=== PATIENT | female | born 1975 | race Two or more races ===

== ENCOUNTER 2016-08-19 20:09 | Emergency (ER) | payer OTHER ==
[~2016-08-19] VITALS: Ht 149.9 cm; Wt 65.0 kg
[2016-08-19] MEDS ORDERED: KETOROLAC TROMETHAMINE 30 MG/ML VIAL IVP ONE (21:00)
[2016-08-19 21:04] LABS: BASOPHILS # (AUTO) 0.01 K/uL (0.00-0.20); BASOPHILS % (AUTO) 0.2 % (0.0-2.0); EOSINOPHILS # (AUTO) 0.09 K/uL (0.00-0.70); EOSINOPHILS % (AUTO) 1.19 % (1.0-6.0); HEMATOCRIT 40.6 % (36-46); HEMOGLOBIN 13.1 g/dL (12.0-16.0); LYMPHOCYTES # (AUTO) 1.8 K/uL (1.0-4.8); MEAN CORPUSCULAR HEMOGLOBIN 28.5 pg (26.0-34.0); MEAN CORPUSCULAR HGB CONC 32.2 G/dL (31.0-37.0); MEAN CORPUSCULAR VOLUME 88 fL (80-100); MONOCYTES # (AUTO) 0.7 K/uL (0.1-1.0); NEUTROPHILS % (AUTO) 65.7 % (40.0-70.0); PLATELET COUNT (AUTO) 262 K/uL (150-450); RED BLOOD CELL COUNT(AUTO) 4.59 MIL/uL (4.00-5.20); RED CELL DISTRIBUTION WIDTH 13.6 % (11.5-14.5); WHITE BLOOD COUNT (AUTO) 7.6 K/uL (4.5-11.0)
[2016-08-19 21:13] LABS: ANION GAP 5 mmol/L (8-16); CALCIUM, TOTAL 9.2 mg/dL (8.8-10.5); CARBON DIOXIDE 30 mmol/L (22-29); CHLORIDE 101 mmol/L (98-107); CREATININE 0.95 mg/dL (0.60-1.30); GLOMERULAR FILTR. RATE CALC > 60 mL/min (>60); POTASSIUM 4.4 mmol/L (3.5-5.1); SODIUM SERUM 136 mmol/L (136-145); UREA NITROGEN, BLOOD 11 mg/dL (7-18)
[2016-08-19 21:18] LABS: ALANINE AMINOTRANSFERASE 126 U/L (12-78); ALBUMIN 3.4 g/dL (3.4-5.0); ASPARTATE AMINOTRANSFERASE 82 U/L (15-37); BILIRUBIN,TOTAL 0.2 mg/dL (0.1-1.0); TOTAL PROTEIN, SERUM 7.5 g/dL (6.4-8.2)
[2016-08-19 21:28] LABS: APPEARANCE,URINE CLEAR (CLEAR); GLUCOSE, URINE (UA) NEGATIVE (NEGATIVE); KETONES,URINE NEGATIVE (NEGATIVE); OCCULT BLOOD,URINE NEGATIVE (NEGATIVE); PROTEIN,URINE NEGATIVE (NEGATIVE)
[2016-08-19 21:32] LABS: ADD UA MICROSCOPIC YES; LEUKOCYTE ESTERASE ,URINE SMALL (NEGATIVE)
[2016-08-19 21:33] LABS: RBC,URINE 0-2 /HPF (0-2); SQUAMOUS EPITHELIAL CELL,UR Moderate /LPF (None Seen)
[2016-08-19] MEDS ORDERED: TraMADol HCL 50 MG TABLET PO ONE (22:00)
[2016-08-19] MEDS ORDERED: CefTRIAXone 1 GM/DEXTROSE 50 ML IV ONE (22:00)
[2016-08-19 22:22] VITALS: BP 122/78
== END 2016-08-19 22:23 | disposition home or self-care (01) ==
LOC: EMS 20:10
DX: N39.0 Urinary tract infection, site not specified (principal); F17.210 Nicotine dependence, cigarettes, uncomplicated; Z91.018 Allergy to other foods
CPT/HCPCS: 36415; 80053; 81001; 83690; 84703; 85025; 87077; 87086; 87186; 96374; 96375; 99284; J0696; J1885

== ENCOUNTER 2018-02-09 22:37 | Emergency (ER) | payer OTHER ==
[~2018-02-09] VITALS: Ht 149.9 cm; Wt 65.9 kg
[2018-02-09] MEDS ORDERED: TOPI100T37 PO ×2 (22:45)
[2018-02-10 00:09] VITALS: BP 122/80
== END 2018-02-10 00:33 | disposition home or self-care (01) ==
LOC: EMS 22:38
DX: F10.20 Alcohol dependence, uncomplicated (principal); F17.210 Nicotine dependence, cigarettes, uncomplicated; F11.10 Opioid abuse, uncomplicated; Z90.11 Acquired absence of right breast and nipple; Z91.018 Allergy to other foods
CPT/HCPCS: 99406

== ENCOUNTER 2020-07-18 11:29 | Emergency (ER) | payer OTHER ==
[~2020-07-18] VITALS: Ht 149.9 cm; Wt 68.2 kg
[~2020-07-18 11:29] MED LIST: TOPI100T37 PO
[2020-07-18 11:33] VITALS: BP 146/95
[2020-07-18] MEDS ORDERED: PENICILLIN V POTASSIUM 500 MG TABLET PO ONE (12:30)
[2020-07-18] MEDS ORDERED: HYDROCODONE/ACETAMINOPHEN 5-325 MG TABLET PO ONE (12:30)
== END 2020-07-18 12:59 | disposition home or self-care (01) ==
LOC: EMS 11:32
DX: K04.7 Periapical abscess without sinus (principal); F17.210 Nicotine dependence, cigarettes, uncomplicated; F11.90 Opioid use, unspecified, uncomplicated; Z91.018 Allergy to other foods
CPT/HCPCS: 99283

== ENCOUNTER 2024-04-26 18:19 | Emergency (ER) | payer MEDICAID, OTHER ==
[~2024-04-26] VITALS: Ht 149.9 cm; Wt 77.3 kg
[2024-04-26 18:21] VITALS: BP 150/98; PULSE 89; RESP 18; TEMP 98.2; O2SAT 99
[2024-04-26] MEDS ORDERED: HYDR-4527 PO (18:23)
[2024-04-26] MEDS ORDERED: PALB125T PO (18:23)
[2024-04-26] MEDS ORDERED: HYDR-4062 PO (19:03)
[2024-04-26] MEDS ORDERED: IBUP-1554 PO (19:03)
[2024-04-26] MEDS ORDERED: AMOX-457 PO (19:03)
[2024-04-26] MEDS ORDERED: TOPI-258 PO (19:11)
[2024-04-26] MEDS ORDERED: QUET50TA24 PO (19:11)
[2024-04-26] MEDS ORDERED: SEMA1.7P SQ (19:11)
[2024-04-26] MEDS ORDERED: BUPR-562 PO (19:11)
[2024-04-26] MEDS ORDERED: PRAZ2 PO (19:11)
[2024-04-26] MEDS ORDERED: LETR2.5 PO (19:11)
[2024-04-26] MEDS ORDERED: MIRT-93 PO (19:11)
[2024-04-26] MEDS ORDERED: TOPI-97 PO (19:11)
[2024-04-26] MEDS: HYDROCODONE/ACETAMINOPHEN 5-325 MG TABLET PO ONE (19:18)
== END 2024-04-26 19:21 | disposition home or self-care (01) ==
LOC: EMS 18:19
DX: K04.7 Periapical abscess without sinus (principal); F17.210 Nicotine dependence, cigarettes, uncomplicated; Z88.0 Allergy status to penicillin; Z85.3 Personal history of malignant neoplasm of breast
CPT/HCPCS: 99283

== ENCOUNTER 2024-05-05 17:45 | Emergency (ER) | payer MEDICAID ==
[~2024-05-05] VITALS: Ht 149.9 cm; Wt 76.4 kg
[~2024-05-05 17:45] MED LIST changes: +AMOX-457 PO; +BUPR-562 PO; +HYDR-4062 PO; +HYDR-4527 PO; +IBUP-1554 PO; +LETR2.5 PO; +MIRT-93 PO; +PALB125T PO; +PRAZ2 PO; +QUET50TA24 PO; +SEMA1.7P SQ; +TOPI-258 PO; +TOPI-97 PO; -TOPI100T37 PO
[2024-05-05 17:56] VITALS: BP 143/94; PULSE 84; RESP 18; TEMP 98.5; O2SAT 99
[2024-05-05] MEDS ORDERED: SEMA2.4P SQ (17:59)
[2024-05-05] MEDS: ONDANSETRON HCL 4 MG/2 ML VIAL IVP ONE (18:30)
[2024-05-05] MEDS: SODIUM CHLORIDE 0.9% 1,000 ML IV ONE (18:30)
[2024-05-05 18:51] LABS: BASOPHILS % (AUTO) 0.4 % (0.0-2.0); EOSINOPHILS % (AUTO) 6.1 % (1.0-6.0); HEMATOCRIT 42.2 % (36-46); HEMOGLOBIN 13.9 g/dL (12.0-16.0); LYMPHOCYTES # (AUTO) 1.8 K/uL (1.0-4.8); LYMPHOCYTES % (AUTO) 44.3 % (22.0-44.0); MEAN CORPUSCULAR HEMOGLOBIN 30.3 pg (26.0-34.0); MEAN CORPUSCULAR HGB CONC 32.9 G/dL (31.0-37.0); MEAN CORPUSCULAR VOLUME 92 fL (80-100); MONOCYTES # (AUTO) 0.1 K/uL (0.1-1.0); MONOCYTES % (AUTO) 3.5 % (2.0-9.0); NEUTROPHILS # (AUTO) 1.8 K/uL (1.8-7.7); NEUTROPHILS % (AUTO) 45.7 % (40.0-70.0); PLATELET COUNT (AUTO) 189 K/uL (150-450); RED BLOOD CELL COUNT(AUTO) 4.59 MIL/uL (4.00-5.20); RED CELL DISTRIBUTION WIDTH 13.5 % (11.5-14.5)
[2024-05-05 19:03] LABS: ANION GAP 4 mmol/L (8-16); CALCIUM, TOTAL 9.5 mg/dL (8.8-10.5); CARBON DIOXIDE 32 mmol/L (22-29); CHLORIDE 103 mmol/L (98-107); CREATININE 0.85 mg/dL (0.60-1.30); GLOMERULAR FILTR. RATE CALC > 60 mL/min (>60); GLUCOSE,RANDOM 87 mg/dL (70-110); POTASSIUM 4.3 mmol/L (3.5-5.1); SODIUM SERUM 139 mmol/L (136-145); UREA NITROGEN, BLOOD 17 mg/dL (7-18)
[2024-05-05 19:12] LABS: TROPONIN I-HIGH SENSITIVITY Less Than 4 ng/L (<51)
[2024-05-05 19:22] LABS: ALBUMIN 3.7 g/dL (3.4-5.0); BILIRUBIN,DIRECT 0.1 mg/dL (0.00-0.20); BILIRUBIN,TOTAL 0.2 mg/dL (0.1-1.0); TOTAL PROTEIN, SERUM 7.9 g/dL (6.4-8.2)
[2024-05-05 20:22] LABS: ABG BASE EXCESS 3.2 mmol/L (-2.0-3.0); ABG CARBOXYHEMOGLOBIN 0.5 % (0.5-1.5); ABG HCO3 27.1 mmol/L (21.0-28.0); ABG METHEMOGLOBIN 0.6 % (0.0-1.5); ABG OXYGEN CONTENT 19.9 mL/dL (15.0-23.0); ABG OXYGEN SATURATION 98.7 % (94.0-98.0); ABG OXYHEMOGLOBIN 97.6 % (94.0-98.0); ABG PCO2 41 mmHg (32.0-45.0); ABG TOTAL HEMOGLOBIN 14.4 G/dL (12.0-16.0); PO2, ARTERIAL BG 103.3 mmHg (83.0-108.0); SOURCE, BLOOD GAS ARTERIAL; TEMPERATURE, FAHRENHEIT, BG 98.5 FAHREN (96.0-98.6)
[2024-05-05 20:23] LABS: ALLEN TEST, BLOOD GAS Positive; O2 DEVICE,BLOOD GAS ROOM AIR (ROOM AIR); SITE, BLOOD GAS LFT RADIAL
== END 2024-05-05 21:12 | disposition home or self-care (01) ==
LOC: EMS 17:45
DX: R10.84 Generalized abdominal pain (principal); T50.905A Adverse effect of unspecified drugs, medicaments and biological substances, initial encounter; F15.90 Other stimulant use, unspecified, uncomplicated; Z98.890 Other specified postprocedural states; Z79.811 Long term (current) use of aromatase inhibitors; Z79.899 Other long term (current) drug therapy; Z85.3 Personal history of malignant neoplasm of breast; Z88.0 Allergy status to penicillin; Y92.89 Other specified places as the place of occurrence of the external cause
CPT/HCPCS: 80048; 80076; 82805; 84484; 85025; 93005; 99284

== ENCOUNTER 2024-06-09 14:16 | Emergency (ER) | payer MEDICAID ==
[~2024-06-09] VITALS: Ht 149.9 cm; Wt 77.2 kg
[~2024-06-09 14:16] MED LIST changes: -AMOX-457 PO; -BUPR-562 PO; -HYDR-4062 PO; +SEMA2.4P SQ
[2024-06-09 15:02] VITALS: BP 100/64; PULSE 84; RESP 16; TEMP 98.2; O2SAT 96
[2024-06-09] MEDS: TraMADol HCL 50 MG TABLET PO ONE (16:16)
[2024-06-09] MEDS ORDERED: FLUC150T61 PO (16:16)
[2024-06-09] MEDS ORDERED: NYST100033 PO (16:16)
[2024-06-09 16:46] LABS: GLUCOMETER DEV NAME(LOC) ERT.6; GLUCOSE,POINT OF CARE 73 MG/DL (70-110)
[2024-06-09] MEDS: MAALOX/LIDOCAINE/NYSTATIN SUSP 5 ML ORAL.SYG PO ONE (17:11)
== END 2024-06-09 17:42 | disposition home or self-care (01) ==
LOC: EMS 14:29
DX: B37.9 Candidiasis, unspecified (principal); Z88.0 Allergy status to penicillin; Z79.811 Long term (current) use of aromatase inhibitors; Z85.3 Personal history of malignant neoplasm of breast; Z79.899 Other long term (current) drug therapy
CPT/HCPCS: 82948; 82962; 99283

== ENCOUNTER 2024-12-02 08:41 | Emergency (ER) | payer MEDICAID ==
[~2024-12-02] VITALS: Ht 151.1 cm; Wt 68.2 kg
[~2024-12-02 08:41] MED LIST changes: +FLUC150T61 PO; -HYDR-4527 PO; +HYDR25TA83 PO; +NYST100033 PO; -SEMA1.7P SQ
[2024-12-02 08:48] VITALS: TEMP 97.9
[2024-12-02 08:59] LABS: COVID AG,FIA SOURCE NASAL SWAB
[2024-12-02 09:35] LABS: SARS-COV2 (COVID) ANTIGEN,FIA Negative (Negative)
[2024-12-02 09:36] LABS: INFLUENZA TYPE A NEGATIVE FOR TYPE A (NEGATIVE); INFLUENZA TYPE B NEGATIVE FOR TYPE B (NEGATIVE)
[2024-12-02 09:53] LABS: PLATELET COUNT (AUTO) 166 K/uL (150-450); RED BLOOD CELL COUNT(AUTO) 4.48 MIL/uL (4.00-5.20); RED CELL DISTRIBUTION WIDTH 12.3 % (11.5-14.5); WHITE BLOOD COUNT (AUTO) 4.4 K/uL (4.5-11.0)
[2024-12-02 09:58] LABS: CALCIUM, TOTAL 9.0 mg/dL (8.8-10.5); CREATININE 0.62 mg/dL (0.60-1.30); GLOMERULAR FILTR. RATE CALC > 60 mL/min (>60); GLUCOSE,RANDOM 84 mg/dL (70-110); SODIUM SERUM 139 mmol/L (136-145); UREA NITROGEN, BLOOD 10 mg/dL (7-18)
[2024-12-02 10:08] LABS: TROPONIN I-HIGH SENSITIVITY Less Than 4 ng/L (<51)
[2024-12-02] MEDS: ALBUTEROL SULFATE 2.5 MG/0.5 ML NEB SOLUTION NEB ONE (13:59)
[2024-12-02] MEDS: IPRATROPIUM BROMIDE 0.5 MG/2.5 ML NEB SOLUTION NEB ONE ×2 (13:59→14:54)
[2024-12-02 14:00] VITALS: PULSE 65; RESP 20; O2SAT 95
[2024-12-02 14:15] VITALS: PULSE 66; RESP 20; O2SAT 99
[2024-12-02] MEDS ORDERED: 0.9% SODIUM CHLORIDE 5 ML NEB SOLUTION NEB ONE (14:50)
[2024-12-02] MEDS: ALBUTEROL SULFATE 2.5 MG/0.5 ML 5 ML NEB SOLUTION NEB ONE (14:54)
[2024-12-02] MEDS: GuaiFENesin SR 600 MG ER TABLET PO ONE (14:57)
[2024-12-02 15:00] VITALS: PULSE 59; RESP 20; O2SAT 99
[2024-12-02 16:00] VITALS: PULSE 100; RESP 20; O2SAT 95
[2024-12-02] MEDS ORDERED: AZIT250T9 PO (16:34)
[2024-12-02] MEDS ORDERED: ALBU18HF12 IH (16:34)
[2024-12-02] MEDS ORDERED: GUAIF600 PO (16:34)
[2024-12-02 16:39] VITALS: BP 127/71; PULSE 86; RESP 18; O2SAT 93
== END 2024-12-02 16:42 | disposition home or self-care (01) ==
LOC: EMS 08:48
DX: J40 Bronchitis, not specified as acute or chronic (principal); R05.9 Cough, unspecified; R06.02 Shortness of breath; R07.89 Other chest pain; Z85.3 Personal history of malignant neoplasm of breast; Z98.890 Other specified postprocedural states; Z90.11 Acquired absence of right breast and nipple; Z98.82 Breast implant status; Z79.811 Long term (current) use of aromatase inhibitors; Z79.899 Other long term (current) drug therapy; Z88.0 Allergy status to penicillin; Z20.822 Contact with and (suspected) exposure to COVID-19
CPT/HCPCS: 99285; 71045; 87426; 80048; 83880; 84484; 85025; 87804; 36415; 94644; 93005; J7512; 94640; J7613

== ENCOUNTER 2025-01-17 18:45 | Emergency (ER) | payer MEDICAID ==
[~2025-01-17] VITALS: Ht 152.4 cm; Wt 68.2 kg
[~2025-01-17 18:45] MED LIST changes: +ALBU18HF12 IH; +GUAIF600 PO
[2025-01-17 18:55] LABS: COVID AG,FIA SOURCE NASAL SWAB
[2025-01-17 19:13] LABS: INFLUENZA TYPE A NEGATIVE FOR TYPE A (NEGATIVE); INFLUENZA TYPE B NEGATIVE FOR TYPE B (NEGATIVE); SARS-COV2 (COVID) ANTIGEN,FIA Negative (Negative)
[2025-01-17 19:30] VITALS: PULSE 75; RESP 17; TEMP 97.9; O2SAT 100
[2025-01-17] MEDS: ALBUTEROL SULFATE HFA 90 MCG/PUFF 8 GM INHALER IH ONE (19:38)
[2025-01-17] MEDS: ALBUTEROL SULFATE 2.5 MG/0.5 ML NEB SOLUTION NEB ONE (19:38)
[2025-01-17] MEDS: IPRATROPIUM BROMIDE 0.5 MG/2.5 ML NEB SOLUTION NEB ONE (19:38)
[2025-01-17 19:40] VITALS: PULSE 75; RESP 19; O2SAT 100
[2025-01-17 19:55] VITALS: PULSE 79; RESP 22; O2SAT 100
[2025-01-17 20:00] VITALS: PULSE 79; RESP 22; O2SAT 100
[2025-01-17] MEDS ORDERED: LEVO750T68 PO (20:06)
[2025-01-17 20:20] VITALS: BP 124/69; PULSE 71; RESP 18; O2SAT 100
== END 2025-01-17 21:44 | disposition home or self-care (01) ==
LOC: EMS 18:45
DX: J18.9 Pneumonia, unspecified organism (principal); F15.90 Other stimulant use, unspecified, uncomplicated; Z79.811 Long term (current) use of aromatase inhibitors; Z79.899 Other long term (current) drug therapy; Z85.3 Personal history of malignant neoplasm of breast; Z88.0 Allergy status to penicillin; Z90.11 Acquired absence of right breast and nipple; Z98.82 Breast implant status; Z20.822 Contact with and (suspected) exposure to COVID-19
CPT/HCPCS: 99285; 71045; 87426; 87804; 94640; J3535; 94060; J7613